=== PATIENT | female | born 1995 | race Caucasian/White ===

== ENCOUNTER 2017-11-27 08:43 | Inpatient (IN) | payer OTHER ==
[~2017-11-27] VITALS: Ht 172.7 cm; Wt 84.0 kg
[2017-11-27] VITALS (43 sets, daily range): BP systolic 101–135; BP diastolic 40–92; PULSE 59–88; RESP 16–18; TEMP 97.8–98.7
[~2017-11-27 08:43] MED LIST: METHO500 PO; NAPR500 PO
--- NOTE | 2017-11-27 09:36 | HHI.HP ---
HPI Chief Complaint induction Date Seen: Nov 27, 2017 Time Seen: 09:30 Travel History International Travel<30 Days: No Contact w/Intl Traveler<30Days: No Known Affected Area: No History of Present Illness HPI 22 yo who is 40 5/7 weeks for induction. she is doing well who needs cervical ripening Weeks Gestation: 40 Para: 0 : 1 History Past Medical History Medical History: Denies Significant Hx Obstetric History Obstetric History G0 Past Surgical History Narrative Surgical middle finger Family History Family History: Negative Social History Alcohol Use: No Tobacco Use: No Substance Abuse: No Allergies-Medications (Allergen,Severity, Reaction): Coded Allergies: No Known Allergies (Unverified Adverse Reaction, Unknown, 11/27/17) Home Meds Discontinued Scripts Methocarbamol (Robaxin 500 Mg Tab) 500 Mg Tab, 500 MG PO TID, #15 TAB Prov:Wood Norris MD 12/02/15 Naproxen (Naprosyn) 500 Mg Tab, 500 MG PO BID for 10 Days, TAB Prov:Wood Norris MD 12/02/15 Review of Systems Except as stated in HPI: all other systems reviewed are Neg Physical Exam Narrative GENERAL: Well-nourished, well-developed patient. SKIN: Warm and dry. HEAD: Normocephalic and atraumatic. EYES: No scleral icterus. No injection or drainage. ENT: No nasal drainage noted. Mucous membranes pink. Airway patent. NECK: Supple, trachea midline. No JVD. CARDIOVASCULAR: Regular rate and rhythm without murmurs, gallops, or rubs. RESPIRATORY: Breath sounds equal bilaterally. No accessory muscle use. BREASTS: Bilateral exam showed no masses , no retractions, no nipple discharge. ABDOMEN/GI: Abdomen soft, non-tender, bowel sounds present, no rebound, no guarding Gravid to 40 weeks size Fundal Height: [-] GENITOURINARY: External Genitalia: intact and normal in appearance BUS glands: [-] Cervix: [-] Dilatation: Cl Effacement: 60% Station: [-] Presentation: Vtx Membranes: intact Uterine Contractions: [-] FHT's: Category: [-] Baseline: [-] Reactive: [-] Variability: [-] Decels: [-] EXTREMITIES: No cyanosis or edema. BACK: Nontender without obvious deformity. No CVA tenderness. NEUROLOGICAL: Awake and alert. Motor and sensory grossly within normal limits. Five out of 5 muscle strength in all muscle groups. Normal speech. Caprini VTE Risk Assessment Caprini VTE Risk Assessment: No/Low Risk (score <= 1) Caprini Risk Assessment Model Point Value = 1 Point Value = 2 Point Value = 3 Point Value = 5 Age 41-60 Minor surgery BMI > 25 kg/m2 Swollen legs Varicose veins or History of unexplained or recurrent spontaneous Oral contraceptives or hormone replacement Sepsis (< 1 month) Serious lung disease, including pneumonia (< 1 month) Abnormal pulmonary function Acute myocardial infarction Congestive heart failure (< 1 month) History of inflammatory bowel disease Medical patient at bed rest Age 61-74 Arthroscopic surgery Major open surgery (> 45 min) Laparoscopic surgery (> 45 min) Malignancy Confined to bed (> 72 hours) Immobilizing plaster cast Central venous access Age >= 75 History of VTE Family history of VTE Factor V Leiden Prothrombin [id number] Lupus anticoagulant Anticardiolipin antibodies Elevated serum homocysteine Heparin-induced thrombocytopenia Other congenital or acquired thrombophilia Stroke (< 1 month) Elective arthroplasty Hip, pelvis, or leg fracture Acute spinal cord injury (< 1 month) Prophylaxis Regimen Total Risk Factor Score Risk Level Prophylaxis Regimen 0-1 Low Early ambulation 2 Moderate Order ONE of the following: *Sequential Compression Device (SCD) *Heparin 5000 units SQ BID 3-4 Higher Order ONE of the following medications: *Heparin 5000 units SQ TID *Enoxaparin/Lovenox 40 mg SQ daily (WT < 150 kg, CrCl > 30 mL/min) *Enoxaparin/Lovenox 30 mg SQ daily (WT < 150 kg, CrCl > 10-29 mL/min) *Enoxaparin/Lovenox 30 mg SQ BID (WT < 150 kg, CrCl > 30 mL/min) AND/OR *Sequential Compression Device (SCD) 5 or more Highest Order ONE of the following medications: *Heparin 5000 units SQ TID (Preferred with Epidurals) *Enoxaparin/Lovenox 40 mg SQ daily (WT < 150 kg, CrCl > 30 mL/min) *Enoxaparin/Lovenox 30 mg SQ daily (WT < 150 kg, CrCl > 10-29 mL/min) *Enoxaparin/Lovenox 30 mg SQ BID (WT < 150 kg, CrCl > 30 mL/min) AND *Sequential Compression Device (SCD) Data Data Vital Signs Reviewed: Yes Orders Orders Admit To Inpatient (11/27/17 ) Code Status (11/27/17 09:28) Vital Signs (Adult) .Per protocol (11/27/17 09:28) Heart (11/27/17 09:28) Amnioinfusion (11/27/17 09:28) Urinary Catheter Management .ONCE (11/27/17 09:28) Diet Liquid (11/27/17 Breakfast) Lactated Ringer's 1000 Ml Inj (Lr 1000 M (11/27/17 09:28) Lactated Ringer's 1000 Ml Inj (Lr 1000 M (11/27/17 09:28) Sodium Chlorid 0.9% 500 Ml Inj (Ns 500 M (11/27/17 09:30) Sodium Chlor 0.9% 1000 Ml Inj (Ns 1000 M (11/27/17 09:48) Lidocaine 1% Inj (50 Ml) (Xylocaine 1% I (11/27/17 09:30) Citric Acid-Sodium Citrate Liq (Bicitra (11/27/17 09:30) Fentanyl Inj (Fentanyl Inj) (11/27/17 09:30) Fentanyl Inj (Fentanyl Inj) (11/27/17 09:30) Complete Blood Count With Diff (11/27/17 09:28) Hold Clot (11/27/17 09:28) Abo/Rh Blood Type (11/27/17 09:28) Urinalysis - C+S If Indicated (11/27/17 09:28) Drug Screen, Random Urine (11/27/17 09:28) Resp Oxygen Non Rebreathe Mask (11/27/17 ) ^ Epidural / Intrathecal Infus (11/27/17 09:28) Oxytocin 30 Units-500ml Premix (Pitocin (11/27/17 09:30) Lidocaine 1% Inj (50 Ml) (Xylocaine 1% I (11/27/17 09:30) Light Mineral Oil (Muri-Lube Oil) (11/27/17 09:30) Inpatient Certification (11/27/17 ) Specimen To Be Collected PRN (11/27/17 09:28) Specimen To Be Collected PRN (11/27/17 09:28) Admit To Inpatient (11/27/17 ) Activity Oob Ad Lisa (11/27/17 09:28) ^ Labor Induction (11/27/17 09:28) ^ Vaginal Insert (11/27/17 09:28) ^ Vaginal Lavage (11/27/17 09:28) Heart (11/27/17 09:28) Misoprostol (Cytotec) (11/27/17 09:30) Sodium Chloride 0.9% Flush (Ns Flush) (11/27/17 09:30) Sodium Chloride 0.9% Flush (Ns Flush) (11/27/17 09:30) Inpatient Certification (11/27/17 ) Group B Strep: Negative Assessment/Plan Problem List: (1) 40 weeks gestation of ICD Codes: Z3A.40 - 40 weeks gestation of Assessment and Plan induction with cyto valerie Suleiman Lazar MD Nov 27, 2017 09:36
[2017-11-27] MEDS ORDERED: CITRIC ACID-SODIUM CITRATE LIQ 30 ML UDC PO SCH (09:45)
[2017-11-27] MEDS ORDERED: LIDOCAINE HCL 1% 50 ML VIAL I-DERMAL PRN (09:45)
[2017-11-27] MEDS ORDERED: LACTATED RINGER'S 1000 ML INJ 1,000 ML IV PRN (09:45)
[2017-11-27] MEDS ORDERED: MINERAL OIL 10 ML VIAL TOPICAL PRN (09:45)
[2017-11-27] MEDS ORDERED: LIDOCAINE HCL 1% 50 ML VIAL INFIL PRN (09:45)
[2017-11-27] MEDS ORDERED: MISOPROSTOL 100 MCG TAB VAGINAL ONE (10:00)
[2017-11-27] MEDS ORDERED: OXYTOCIN 30 UNITS-500ML PREMIX 500 ML IV ONE (10:00)
[2017-11-27] MEDS ORDERED: SODIUM CHLORIDE 0.9% FLUSH 10 ML FLUSH IV FLUSH SCH ×2 (10:00→21:00)
[2017-11-27] MEDS ORDERED: SODIUM CHLORIDE 0.9% FLUSH 10 ML FLUSH IV FLUSH PRN ×2 (10:00→20:15)
[2017-11-27] MEDS ORDERED: SODIUM CHLOR 0.9% 1000 ML INJ 1,000 ML IV PRN (10:00)
[2017-11-27] MEDS ORDERED: SODIUM CHLORID 0.9% 500 ML INJ 500 ML IV PRN (10:00)
[2017-11-27 10:34] LABS: AUTOMATED NEUTROPHIL # 6.5 TH/MM3 (1.8-7.7); BASOPHIL % 0.2 % (0.0-2.0); EOSINOPHIL # 0.1 TH/MM3 (0-0.4); EOSINOPHIL % 0.9 % (0.0-4.0); HEMATOCRIT 37.1 % (35.0-46.0); HEMOGLOBIN 12.5 GM/DL (11.6-15.3); LYMPH % 18.8 % (9.0-44.0); LYMPHOCYTE # 1.7 TH/MM3 (1.0-4.8); MEAN CELL VOLUME 86.9 FL (80.0-100.0); MEAN CORPUSCULAR HEMOGLOBIN 29.3 PG (27.0-34.0); MEAN CORPUSCULAR HGB CONC 33.7 % (32.0-36.0); MEAN PLATELET VOLUME 9.5 FL (7.0-11.0); MONO % 6.3 % (0.0-8.0); MONOCYTE # 0.6 TH/MM3 (0-0.9); NEUT % 73.8 % (16.0-70.0); PLATELET COUNT 201 TH/MM3 (150-450); RED BLOOD COUNT 4.26 MIL/MM3 (4.00-5.30); RED CELL DISTRIBUTION WIDTH 13.1 % (11.6-17.2); WHITE BLOOD COUNT 8.8 TH/MM3 (4.0-11.0)
[2017-11-27 10:36] LABS: BILIRUBIN, URINE NEG (NEG); BLOOD, URINE NEG (NEG); GLUCOSE,URINE NEG (NEG); KETONE, URINE NEG (NEG); MUCUS URINE FEW /lpf (OCC); NITRITE,URINE NEG (NEG); PH, URINE 6.5 (5.0-8.5); SQUAMOUS EPITHELIAL CELL URINE <1 /hpf (0-5); URINE COLOR YELLOW (YELLW/STRAW); URINE LEUKOCYTE ESTERASE TRACE (NEG)
[2017-11-27] MEDS: LACTATED RINGER'S 1000 ML INJ 1,000 ML IV SCH ×2 (11:21→17:02)
--- NOTE | 2017-11-27 12:59 | PD.LABORPN ---
Subjective Subjective induction with few contractions now cervix 3 cm Objective Vital Signs Vital Signs Date Time Temp Pulse Resp B/P (MAP) Pulse Ox O2 Delivery O2 Flow Rate FiO2 11/27/17 12:49 62 127/78 (94) Objective Pelvic Exam: Cervix: [-] Dilatation: 3 Effacement: 90 Station: [-] Presentation: vtx Membranes: AROM Uterine Contractions: [-] FHT's: Category: 1 Baseline: [-] Reactive: [-] Variability: [-] Decels: [-] Weeks Gestation: 40 Gest Age Assessed Date: Nov 27, 2017 Gest Age Assessed Time: 12:50 Pt started active labor?: Yes Active labor start date: Nov 27, 2017 Active labor start time: 12:50 Medical induction of labor?: No Artificial rupture of membrane: Yes Artificial ROM date: Nov 27, 2017 Artifical ROM time: 12:50 Assessment/Plan Problem List: (1) 40 weeks gestation of ICD Codes: Z3A.40 - 40 weeks gestation of Suleiman Lazar MD Nov 27, 2017 12:59
[2017-11-27] MEDS ORDERED: OXYTOCIN 30 UNITS-500ML PREMIX 500 ML IV SCH ×2 (13:30→20:15)
[2017-11-27] MEDS ORDERED: MEASLES, MUMPS, RUBELLA VACCINE 0.5 ML VIAL SQ ONE (16:00)
[2017-11-27] MEDS ORDERED: DIPHTH/TETANUS/ACEL PERTUSSIS (BOOSTER) 0.5 ML VIAL/PFS IM ONE (16:00)
[2017-11-27] MEDS ORDERED: fentaNYL 2MCG-BUPIV 0.125% INJ 100 ML ONE (16:09)
[2017-11-27] MEDS ORDERED: DO NOT ADMINISTER ANTICOAGULANTS PRN (17:00)
[2017-11-27] MEDS ORDERED: NO SYSTEM NARCOTICS PRN (17:00)
[2017-11-27] MEDS ORDERED: fentaNYL 2MCG-BUPIV 0.125% 100 ML EPIDURAL SCH (17:00)
[2017-11-27] MEDS ORDERED: ePHEDrine/NS 25 MG/5 ML SYRINGE IV PUSH PRN (17:00)
--- NOTE | 2017-11-27 19:30 | PD.LABORPN ---
Subjective Subjective doing well Objective Vital Signs Vital Signs Date Time Temp Pulse Resp B/P (MAP) Pulse Ox O2 Delivery O2 Flow Rate FiO2 11/27/17 19:26 18 11/27/17 19:05 98.0 18 11/27/17 19:00 68 126/76 (93) 11/27/17 18:00 59 101/54 (70) 11/27/17 18:00 18 11/27/17 17:35 83 119/69 (86) 11/27/17 17:31 85 119/64 (82) 11/27/17 17:25 121/76 (91) 11/27/17 17:25 73 11/27/17 17:20 77 11/27/17 17:20 127/77 (94) 11/27/17 17:15 126/73 (90) 11/27/17 17:15 78 11/27/17 17:10 70 119/68 (85) 11/27/17 17:05 18 11/27/17 17:05 88 121/75 (90) 11/27/17 17:00 88 120/75 (90) 11/27/17 16:55 72 11/27/17 16:55 119/67 (84) 11/27/17 16:51 114/72 (86) 11/27/17 16:51 67 11/27/17 16:50 70 11/27/17 16:45 68 130/66 (87) 11/27/17 16:45 87 11/27/17 16:43 98.3 11/27/17 16:40 86 11/27/17 16:40 68 124/71 (88) 11/27/17 16:35 77 11/27/17 16:35 70 121/77 (92) 11/27/17 16:30 69 123/61 (81) 11/27/17 16:30 69 11/27/17 16:26 68 122/61 (81) 11/27/17 16:25 66 11/27/17 16:24 18 11/27/17 16:20 73 11/27/17 16:20 71 117/74 (88) 11/27/17 16:15 87 11/27/17 16:15 68 128/79 (95) 11/27/17 16:14 63 113/40 (64) 11/27/17 15:34 73 126/80 (95) 11/27/17 15:01 76 126/92 (103) 11/27/17 14:34 75 127/82 (97) 11/27/17 14:31 75 112/70 (84) 11/27/17 14:30 97.8 18 11/27/17 14:00 59 134/85 (101) 11/27/17 13:31 63 106/57 (73) 11/27/17 13:20 66 128/71 (90) 11/27/17 12:49 62 127/78 (94) Objective Pelvic Exam: Cervix: [-] Dilatation: 10 Effacement: 100 Station: 0 Presentation: vtx Membranes: ruptured Uterine Contractions: [-] FHT's: Category: 1 Baseline: [-] Reactive: [-] Variability: [-] Decels: [-] Weeks Gestation: 40 Gest Age Assessed Date: Nov 27, 2017 Gest Age Assessed Time: 12:50 Pt started active labor?: Yes Active labor start date: Nov 27, 2017 Active labor start time: 12:50 Medical induction of labor?: No Artificial rupture of membrane: Yes Artificial ROM date: Nov 27, 2017 Artifical ROM time: 12:50 Assessment/Plan Problem List: (1) 40 weeks gestation of ICD Codes: Z3A.40 - 40 weeks gestation of Suleiman Lazar MD Nov 27, 2017 19:30
--- NOTE | 2017-11-27 20:12 | PD.OB.DELI ---
Weeks gestation: 40 Gest age assessed date: Nov 27, 2017 Gest age assessed time: 12:50 Pt started active labor?: Yes Active labor start date: Nov 27, 2017 Active labor start time: 12:50 Medical induction of labor?: No Artificial rupture of membrane: Yes Artificial ROM date: Nov 27, 2017 Artifical ROM time: 12:50 Anesthesia: Epidural Episiotomy: None Vaginal Delivery: Normal, Spontaneous Presentation: Occiput anterior Nuchal Cord: x1 Delayed cord clamping (45 sec): Yes Infant: Male, Single Delivery date: Nov 27, 2017 Delivery time: 19:46 One Minute : 9 Five Minute : 9 Placenta: Spontaneous delivery, Intact, 3 vessel cord Laceration: Vaginal laceration, 1 deg Repair: Chromic interrupted Estimated blood loss: 300 Suleiman Lazar MD Nov 27, 2017 20:12
[2017-11-27] MEDS ORDERED: IBUPROFEN 800 MG TAB PO PRN (20:15)
[2017-11-27] MEDS ORDERED: oxyCODONE/ACETAMINOPHEN 5 MG/325 MG TAB PO PRN ×2 (20:15)
[2017-11-27] MEDS ORDERED: ACETAMINOPHEN 325 MG TAB PO PRN (20:15)
[2017-11-27] MEDS ORDERED: DOCUSATE SODIUM 50 MG/SENNA 8.6 MG TAB PO PRN (20:15)
[2017-11-27] MEDS ORDERED: BENZOCAINE 20% TOPICAL SPRAY 60 ML CAN TOPICAL PRN (20:15)
[2017-11-27] MEDS ORDERED: ZOLPIDEM TARTRATE 5 MG TAB PO PRN (20:15)
[2017-11-27] MEDS ORDERED: ALUMINUM/MAGNESIUM/SIMETH 30 ML CUP PO PRN (20:15)
[2017-11-27] MEDS ORDERED: ONDANSETRON ODT 4 MG TAB PO PRN (20:15)
[2017-11-27] MEDS ORDERED: WITCH HAZEL 50%/GLYCERIN 12.5% 40 PAD JAR TOPICAL PRN (20:15)
[2017-11-28 08:00] VITALS: BP 112/66; PULSE 74; RESP 18; TEMP 97.6; O2SAT 98
[2017-11-28] MEDS ORDERED: INFLUENZA VIRUS VACCINE (QUADRIVALENT) 0.5 ML SYR IM ONE (10:00)
--- NOTE | 2017-11-28 10:07 | HHI.OB ---
Subjective Post Day: 1 Remarks doing well Objective Vitals/I&O Vital Signs Date Time Temp Pulse Resp B/P (MAP) Pulse Ox O2 Delivery O2 Flow Rate FiO2 11/28/17 08:00 97.6 74 18 112/66 (81) 98 11/27/17 23:15 135/74 (94) 11/27/17 23:15 98.7 66 16 11/27/17 21:02 76 11/27/17 21:02 124/85 (98) 11/27/17 21:02 18 11/27/17 20:46 71 18 11/27/17 20:46 113/66 (82) 11/27/17 20:32 73 131/69 (89) 11/27/17 20:31 18 11/27/17 20:15 80 18 126/79 (95) 11/27/17 20:00 18 11/27/17 20:00 81 108/70 (83) 11/27/17 19:26 18 11/27/17 19:25 77 130/89 (103) 11/27/17 19:05 98.0 18 11/27/17 19:00 68 126/76 (93) 11/27/17 18:00 59 101/54 (70) 11/27/17 18:00 18 11/27/17 17:35 83 119/69 (86) 11/27/17 17:31 85 119/64 (82) 11/27/17 17:25 121/76 (91) 11/27/17 17:25 73 11/27/17 17:20 77 11/27/17 17:20 127/77 (94) 11/27/17 17:15 126/73 (90) 11/27/17 17:15 78 11/27/17 17:10 70 119/68 (85) 11/27/17 17:05 18 11/27/17 17:05 88 121/75 (90) 11/27/17 17:00 88 120/75 (90) 11/27/17 16:55 72 11/27/17 16:55 119/67 (84) 11/27/17 16:51 114/72 (86) 11/27/17 16:51 67 11/27/17 16:50 70 11/27/17 16:45 68 130/66 (87) 11/27/17 16:45 87 11/27/17 16:43 98.3 11/27/17 16:40 86 11/27/17 16:40 68 124/71 (88) 11/27/17 16:35 77 11/27/17 16:35 70 121/77 (92) 11/27/17 16:30 69 123/61 (81) 11/27/17 16:30 69 11/27/17 16:26 68 122/61 (81) 11/27/17 16:25 66 11/27/17 16:24 18 11/27/17 16:20 73 11/27/17 16:20 71 117/74 (88) 11/27/17 16:15 87 11/27/17 16:15 68 128/79 (95) 11/27/17 16:14 63 113/40 (64) 11/27/17 15:34 73 126/80 (95) 11/27/17 15:01 76 126/92 (103) 11/27/17 14:34 75 127/82 (97) 11/27/17 14:31 75 112/70 (84) 11/27/17 14:30 97.8 18 11/27/17 14:00 59 134/85 (101) 11/27/17 13:31 63 106/57 (73) 11/27/17 13:20 66 128/71 (90) 11/27/17 12:49 62 127/78 (94) Objective Remarks GENERAL: Well-nourished, well-developed patient. ABDOMEN/GI: Abdomen soft, non-tender. Fundus: Firm, non-tender at umbilicus. GENITOURINARY: Light to moderate bleeding. EXTREMITIES: No cyanosis or edema, non-tender, without signs of DVT. Medications and IVs Current Medications Medications (Trade) Dose Ordered Sig/Estuardo Route Start Time Stop Time Status Last Admin (NS Flush) 2 ml BID IV FLUSH 11/27/17 21:00 (NS Flush) 2 ml UNSCH PRN IV FLUSH 11/27/17 20:15 (Tylenol) 650 mg Q4H PRN PO 11/27/17 20:15 (Motrin) 800 mg Q8H PRN PO 11/27/17 20:15 (Percocet 5-325 Mg) 1 tab Q4H PRN PO 11/27/17 20:15 (Percocet 5-325 Mg) 2 tab Q4H PRN PO 11/27/17 20:15 (Americaine 20% Top Spr) 1 spray Q4H PRN TOPICAL 11/27/17 20:15 11/28/17 09:09 (Tucks Pads) 1 applic QID PRN TOPICAL 11/27/17 20:15 11/28/17 09:10 (Kira-Colace) 2 tab Q12H PRN PO 11/27/17 20:15 (Ambien) 5 mg HS PRN PO 11/27/17 20:15 (Mag-Al Plus Susp Liq) 15 ml Q8H PRN PO 11/27/17 20:15 (Zofran Odt) 4 mg Q6H PRN PO 11/27/17 20:15 Assessment/Plan Problem List: (1) 40 weeks gestation of ICD Codes: Z3A.40 - 40 weeks gestation of (2) Spontaneous vaginal delivery ICD Codes: O80 - Encounter for full-term uncomplicated delivery Assessment and Plan induction with cyto valerie Suleiman Lazar MD Nov 28, 2017 10:07
--- NOTE | 2017-11-28 10:08 | HHI.DCPOC ---
Discharge Care Plan Diagnosis: (1) Spontaneous vaginal delivery Report Symptoms to Your Doctor -Temperature above 100.5 degrees -Redness, of incision or excessive or foul smelling drainage -Unusual pain or calf pain -Increased vaginal bleeding -Painful or difficulty urinating -Feelings of extreme sadness or anxiety after 2 weeks Goals to Promote Your Health * To prevent worsening of your condition and complications * To maintain your health at the optimal level Directions to Meet Your Goals Take your medications as prescribed Follow your dietary instruction Follow activity as directed Ensure plenty of rest for recovery Drink fluids for hydration Keep your appointments as scheduled Take your immunizations and boosters as scheduled If your symptoms worsen call your PCP, if no PCP go to Urgent Care Center or Emergency Room Smoking is Dangerous to Your Health. Avoid second hand smoke Call the 24-hour crisis hotline for domestic abuse at Suleiman Lazar MD Nov 28, 2017 10:08
[2017-11-28] MEDS ORDERED: OXYC1TAB63 PO (10:09)
[2017-11-28 20:00] VITALS: BP 116/81; PULSE 80; RESP 18; TEMP 98.2; O2SAT 98
[2017-11-29 07:35] VITALS: BP 114/64; PULSE 65; RESP 18; TEMP 98.8
--- NOTE | 2017-11-29 10:26 | HHI.OB ---
Subjective Post Day: 2 Remarks doing well Objective Vitals/I&O Vital Signs Date Time Temp Pulse Resp B/P (MAP) Pulse Ox O2 Delivery O2 Flow Rate FiO2 11/29/17 07:35 65 114/64 (81) 11/29/17 07:35 98.8 18 11/28/17 20:00 98.2 18 98 11/28/17 20:00 80 116/81 (93) Objective Remarks GENERAL: Well-nourished, well-developed patient. ABDOMEN/GI: Abdomen soft, non-tender. Fundus: Firm, non-tender at umbilicus. GENITOURINARY: Light to moderate bleeding. EXTREMITIES: No cyanosis or edema, non-tender, without signs of DVT. Medications and IVs Current Medications Medications (Trade) Dose Ordered Sig/Estuardo Route Start Time Stop Time Status Last Admin (NS Flush) 2 ml BID IV FLUSH 11/27/17 21:00 (NS Flush) 2 ml UNSCH PRN IV FLUSH 11/27/17 20:15 (Tylenol) 650 mg Q4H PRN PO 11/27/17 20:15 (Motrin) 800 mg Q8H PRN PO 11/27/17 20:15 11/29/17 09:28 (Percocet 5-325 Mg) 1 tab Q4H PRN PO 11/27/17 20:15 (Percocet 5-325 Mg) 2 tab Q4H PRN PO 11/27/17 20:15 (Americaine 20% Top Spr) 1 spray Q4H PRN TOPICAL 11/27/17 20:15 11/28/17 09:09 (Tucks Pads) 1 applic QID PRN TOPICAL 11/27/17 20:15 11/28/17 09:10 (Kira-Colace) 2 tab Q12H PRN PO 11/27/17 20:15 (Ambien) 5 mg HS PRN PO 11/27/17 20:15 (Mag-Al Plus Susp Liq) 15 ml Q8H PRN PO 11/27/17 20:15 (Zofran Odt) 4 mg Q6H PRN PO 11/27/17 20:15 Assessment/Plan Problem List: (1) 40 weeks gestation of ICD Codes: Z3A.40 - 40 weeks gestation of (2) Spontaneous vaginal delivery ICD Codes: O80 - Encounter for full-term uncomplicated delivery Assessment and Plan DC home Suleiman Lazar MD Nov 29, 2017 10:26
--- NOTE | 2017-11-29 10:27 | HHI.DS ---
Admission Date Nov 27, 2017 at 08:43 Discharge Date: Nov 29, 2017 Admitting Diagnosis Diagnosis: (1) Spontaneous vaginal delivery Diagnosis: Principal ICD Codes: O80 - Encounter for full-term uncomplicated delivery Delivery Date: Nov 27, 2017 : Male, Single Brief History 22 yo who is 40 5/7 weeks for induction. she is doing well who needs cervical ripening Hospital Course doing well dc home after Pt Condition on Discharge: Good Discharge Disposition: Discharge Home Discharge Instructions Diet Instructions: As Tolerated, No Restrictions Activities You Can Perform: Pelvic Rest Activities to Avoid: Driving for 24 hrs Follow up Referrals: [facility] - 1 Week @ [facility] with Suleiman Lazar MD New Medications: Oxycodone HCl/Acetaminophen (Oxycodone-Acetaminophen 5-325) 5 Mg-325 Mg Tablet 1 TAB PO Q4H PRN for PAIN SCALE 3 TO 5, #20 TAB Suleiman Lazar MD Nov 29, 2017 10:27
== END 2017-11-29 13:49 | disposition home or self-care (01) | DRG 775 ==
LOC: H2EB 08:43 → H2EA 09:58 → H1EA 23:04
PROVIDERS: ADMIT Obstetrics & Gynecology; ATTEND Obstetrics & Gynecology
PROC: 10E0XZZ Delivery of Products of Conception, External Approach (ICD-10-PCS; principal; 2017-11-27)
PROC: 3E0P7VZ Introduction of Hormone into Female Reproductive, Via Natural or Artificial Opening (ICD-10-PCS; 2017-11-27)
PROC: 10907ZC Drainage of Amniotic Fluid, Therapeutic from Products of Conception, Via Natural or Artificial Opening (ICD-10-PCS; 2017-11-27)
PROC: 0HQ9XZZ Repair Perineum Skin, External Approach (ICD-10-PCS; 2017-11-27)
PROC: 3E0R3BZ Introduction of Anesthetic Agent into Spinal Canal, Percutaneous Approach (ICD-10-PCS; 2017-11-27)
PROC: 00HU33Z Insertion of Infusion Device into Spinal Canal, Percutaneous Approach (ICD-10-PCS; 2017-11-27)
DX: O48.0 Post-term pregnancy (principal); O70.0 First degree perineal laceration during delivery; Z3A.40 40 weeks gestation of pregnancy; Z37.0 Single live birth; Z23 Encounter for immunization
CPT/HCPCS: 59025; 80307; 81001; 85025; 85461; 86850; 86900; 86901; 90384; 90686; 90715; J2590; J2790; J7120; Q2038